=== PATIENT | male | born 1950 | race Caucasian/White ===

== ENCOUNTER 2016-08-22 09:45 | Emergency (ER) | payer OTHER ==
[~2016-08-22] VITALS: Ht 172.7 cm; Wt 71.4 kg
[~2016-08-22 09:45] MED LIST: ALB083NB3 HHN; PRE20 PO
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
[2016-08-22 10:01] VITALS: BP 145/55; PULSE 65; RESP 16; O2SAT 95
[2016-08-22 10:06] LABS: BASOPHILS % (AUTO) 0.5 % (0-3); MONOCYTES % (AUTO) 7.3 % (4-12); NEUTROPHILS % (AUTO) 51.9 % (40-74); Platelet Count 205 bil/L (150-400)
[2016-08-22 10:36] LABS: TROPONIN T < 0.010 ug/L (0.0-0.011)
[2016-08-22 10:56] VITALS: BP 127/49; PULSE 65; RESP 21; O2SAT 99
--- NOTE | 2016-08-22 10:59 | DRSVH ---
PROCEDURE: CT BRAIN WITHOUT CONTRAST ([id number]) INDICATIONS: Stroke TECHNIQUE: Noncontrast 4.5 mm thick angled axial sections acquired from the foramen magnum to the vertex, with c oronal reformats. COMPARISON: None. FINDINGS: Image quality: Excellent. CSF spaces: Basal cisterns are patent. No extra-axial fluid collections. The ventricles are symmet bakari in size and shape. Brain: No intracranial bleeds or masses. There is cerebral volume loss for age, with resultant vent ricular and sulcal prominence. There are periventricular and deep white matter chronic small vessel ischemic changes. There is intracranial internal carotid artery atherosclerosis. Skull and face: Calvarium and visualized facial bones appear intact, without suspicious lesions. Sinuses: Visualized sinuses and mastoids are clear. IMPRESSION: No acute intracranial abnormality. Dictated by: Bibiana Thomas M.D. on 08/22/2016 at 10:57 Approved by: Bibiana Thomas M.D. on 08/22/2016 at 10:58
--- NOTE | 2016-08-22 11:39 | NUR ---
Evaluation completed. Rec: Thin/Regular diet. Medication as tolerated. Please go to "Notes" then click on "Assessments and Notes" (bottom left corner of screen). Then select appropriate discipline tab on top of screen.
[2016-08-22 11:48] VITALS: BP 138/64; PULSE 71; RESP 20; O2SAT 100
[2016-08-22 12:30] LABS: APPEARANCE,URINE HAZY (CLEAR,HAZY); COLOR,URINE STRAW (YELLOW); OCCULT BLOOD,URINE NEGATIVE (NEGATIVE); UROBILINOGEN,URINE NORMAL (NORMAL)
[2016-08-22 13:26] VITALS: BP 110/54; PULSE 69; RESP 16; O2SAT 98
== END 2016-08-22 13:27 | disposition home or self-care (01) ==
LOC: SED 09:45 → EDBD 09:45 → SED 13:27
DX: R20.2 Paresthesia of skin (principal); R07.89 Other chest pain; R05 Cough; M79.602 Pain in left arm; H53.8 Other visual disturbances; R42 Dizziness and giddiness; J44.9 Chronic obstructive pulmonary disease, unspecified; Z87.891 Personal history of nicotine dependence
CPT/HCPCS: 36415; 70450; 80053; 81000; 84484; 85025; 92610; 93005; 99285; G8996; G8997; G8998